=== PATIENT | male | born 1960 | race Caucasian/White ===

== ENCOUNTER → 2021-11-10 13:59 | Outpatient (CLI) | payer OTHER, SELFPAY ==
--- NOTE | ~2021-11-10 | XR_ITS ---
EXAMINATION: XR shoulder RT min 2V DATE: 11/10/2021 14:33 INDICATION: Right shoulder pain. TECHNIQUE: 4 views of right shoulder were obtained. COMPARISON: None. FINDINGS: Bone alignment is normal. No fracture. There is mild osteoarthritis of glenohumeral joint a nd severe osteoarthritis of acromioclavicular joint. There is narrowing of the subacromial space with remodeling of the undersurface of the acromion, consistent with chronic rotator cuff tear with cuff arthropathy. Median sternotomy wires are noted. IMPRESSION: 1. Polyarticular osteoarthritis. 2. Chronic right rotator cuff tear with cuff arthropathy. Reviewed, dictated and finalized at location B. E INSURANCE SALES REPRESENTATIVE
--- NOTE | ~2021-11-10 | XR_ITS ---
EXAMINATION: XR_CERV2-3V_CR EXAM DATE: 11/10/2021 14:32 INDICATION: No known recent injury provided at this time. Pain of the cervical spine. TECHNIQUE: Cervical spine frontal, lateral, lateral swimmers, and open-mouth odontoid projections. There is no prior study for comparison. FINDINGS: Large bridging cervical endplate osteophytes. There is mild to moderate loss of the C5-6 d isc height. C6-7 disc space not well visualized. There is overall mild to moderate cervical arthropat hy. The odontoid process is intact. The lateral masses of C1 line up with C2. Prevertebral soft tiss ue and pre-dens space are within normal limits. The vertebral bodies are aligned in the AP dimension. Sternotomy wire. IMPRESSION: 1. Bulky anterior endplate osteophytes. 2. Mild to moderate cervical arthropathy. Reviewed, dictated and finalized at location A. CUTTER
== END ==
PROVIDERS: PCP Nurse Practitioner Family; Visit Provider Nurse Practitioner Family
DX: M54.2 Cervicalgia (principal); M19.011 Primary osteoarthritis, right shoulder
CPT/HCPCS: 72040; 73030

== ENCOUNTER 2021-12-29 13:45 | Outpatient (RCR) | payer OTHER, SELFPAY ==
--- NOTE | 2021-09-30 15:06 | PTOPEVAL ---
PHYSICAL THERAPY EVALUATION AND PLAN OF CARE Thank you for referring Jorden Santana to [facility].? The patient is scheduled to be seen for therapy? 2x/week for 4 weeks. Please review, sign, date and return this plan of care KAREN. I agree with and certify that the following plan of care is medically necessary. Referring Physician Date Attending Provider: Marielena Deng NP Evaluation Information Diagnosis bilateral LE pain, right shoulder pain, neck pain Onset chronic Subjective Information Is here with multiple Query Text:As Reported By Patient/ complaints, but wants to focus Family on left LE first. 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 States that he cannot feel the lower part of the left leg (states he can kick a wall and not feel it). States that the left causes him to have poor balance and is weak. Also reports that the right leg has pain. States that he tripped because of the left LE neuropathy and fell and overstretched the right quadriceps - states that this happened 5 year ago. Prior to this injury he was a walker and since then the right quadriceps gets very fatigued. Sometimes the knees and hips might hurt, but he generally does not have a lot of pain (other than the neuropathy) in either LE. Has 2 stairs to enter the home . Has complaints of neck pain and right shoulder pain, but there is enough going on with LE that we will start there and address Upper body at a later date. Pain Assessment Timing of Pain Assessment Timing of Pain Assessment Assessment Self Report Self Report Pain Level 0 Pain Score Pain Score 0: Self Report Lower Extremity Muscle Strength Testing Hip Strength Right Hip Flexion Strength 4 Good Hip Extension Strength 3- Fair - Hip Abduction Strength 3- Fair - Left Hip Flexion Strength
--- NOTE | 2021-10-07 09:40 | PCPTNOTE ---
Patient did not show up for scheduled appointment this date; Called patient to remind him about appointment unable to leave voicemail due to dial continuing to ring with no option to leave voicemail.
--- NOTE | 2021-10-28 10:08 | PCPTNOTE ---
Patient had to reschedule appt today due to having another appointment.
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
--- NOTE | 2021-11-13 11:14 | PCPTNOTE ---
Patient did not show up for scheduled appointment this date. Called pt due to his missed visit, states he has something he needs to do instead and will not make his visit.
--- NOTE | 2021-12-01 11:22 | PCPTNOTE ---
Addendum entered by Lexie Ruiz, SUPERINTENDENT [employer] 12/01/21 11:26: Patient did not show up for scheduled appointment this date. Called Pt, unable to leave voicemail. Pt's next appointment is , 12/03/21 @ 11:00a. Original Note: Patient did not show up for scheduled appointment this date. Called Pt, unable to leave voicemail. Pt's next appointment is Tuesday12/03/21 @ 11:00a.
--- NOTE | 2021-12-08 17:18 | PTOPEVAL ---
PHYSICAL THERAPY PROGRESS REPORT Thank you for referring Jorden Santana to [facility].? The patient is scheduled to be seen for therapy? 1x/week for 4 weeks. Please review, sign, date and return this plan of care KAREN. I agree with and certify that the following plan of care is medically necessary. Referring Physician Date Attending Provider: Marielena Deng NP Progress Diagnosis bilateral LE pain, right shoulder pain, neck pain Onset chronic Subjective Information Jorden is here again today for Query Text:As Reported By Patient/ re-assessment following a Family month of therapy on the right shoulder. He reports no changes in range of motion or pain. Continues to have significant limitation. States that the left shoulder is hurting some and he believes it to be due to over stressing the left from supporting/ assisting the right. States that he is stretching the neck a lot and feels like he is getting more range of motion. there continues to be a knot in the back of the neck that is really causing some pain. Continues to feel like he has a significant balance deficit and the right thigh still gives him pain and difficulty. He would like to return to work on these two areas for another month and then will plan to continue HEP on his own. Self Report Pain Assessment Spine, Cervical Reported Pain Level 3 Pain Description Aching,Tightness Lowest Pain Intensity 8 Right Shoulder(s) Reported Pain Level 4 Pain Description With Movement Pain Score Pain Score 3,4: Self Report Additional Pain Score Comments . Interventions Used Interventions Used By Clinicians Exercise Upper Extremity Range of Motion Scapular/ Shoulder Range of Motion Right Shoulder Flexion - Active 150 Shoulder Abduction - Active 140 Shoulder Medial Rotation - Active L3 Query Text:Reach Behind the Back Shoulder Lateral Rotation - Active 0 Scapular/Shoulder Range of Motion 12/08/21: no changes in ROM Comments
--- NOTE | 2021-12-30 09:42 | PCPTNOTE ---
This treatment is being continued on visit number [id number]. Please see documentation on both accounts to view progress. Completed interventions, outcomes, and problems have been marked as Inactive to facilitate the copying of the Care plan routine for recurring accounts.
== END 2021-12-29 23:59 | disposition home or self-care (01) ==
LOC: ANHPT 13:45
PROVIDERS: PCP Nurse Practitioner Family; Visit Provider Nurse Practitioner Family
DX: M79.604 Pain in right leg (principal); M79.605 Pain in left leg; M25.511 Pain in right shoulder; M15.9 Polyosteoarthritis, unspecified; M54.2 Cervicalgia; R26.89 Other abnormalities of gait and mobility
CPT/HCPCS: 97110; 97112; 97140; 97163

== ENCOUNTER 2022-03-10 12:30 | Outpatient (RCR) | payer OTHER, SELFPAY ==
--- NOTE | 2021-12-30 09:43 | PCPTNOTE ---
The treatment documented on this account is a continuation of the treatment documented on visit number [id number]. Please see documentation on both accounts to view progress. The Plan of Care has been transitioned and updated within the new V#. I have addressed and agree with the discipline specific Problems, Interventions, and Goals for the current certification period. Completed interventions, outcomes, and problems have been marked as Inactive to facilitate the copying of the Care plan routine for recurring accounts.
--- NOTE | 2022-01-05 16:16 | PTOPEVAL ---
PHYSICAL THERAPY PROGRESS REPORT Thank you for referring Jorden Santana to [facility].? The patient is scheduled to be seen for therapy? 1x/week for 5 weeks. Please review, sign, date and return this plan of care KAREN. I agree with and certify that the following plan of care is medically necessary. Referring Physician Date Attending Provider: Marielena Deng NP Diagnosis bilateral LE pain, right shoulder pain, neck pain Onset chronic Subjective Information States that he feels like the Query Text:As Reported By Patient/ thigh muscle is improving. Family Feels like the muscle is not as tight as it was. Feels like his balance is improving overall but continues to not feel very confident. Pain Score Pain Score 0: Self Report Additional Pain Score Comments . Lower Extremity Range of Motion General Lower Extremity Range of Motion Reason Not Measured WNL/Left,WNL/Right Lower Extremity Muscle Strength Testing Hip Strength Left Hip Flexion Strength 5 Normal Hip Extension Strength 4- Good - Hip Abduction Strength 4- Good - Right Hip Flexion Strength 4+ Good + Hip Extension Strength 3 Fair Hip Abduction Strength 3+ Fair + Knee Strength Left Knee Flexion Strength 5 Normal Knee Extension Strength 5 Normal Right Knee Flexion Strength 4+ Good + Knee Extension Strength 4+ Good + Muscle Length Testing Muscle Length Testing Left Hamstring Length -40 Query Text:(90 - 90 Position) Right Hamstring Length -60 Query Text:(90 - 90 Position) Right Prone Knee Flexor Muscle Length ( 95 degrees) Left Prone Knee Flexor Muscle Length ( 95 degrees) Balance Assessment Mustafa Balance Assessment Sitting to Standing Independent w/out Hands Unsupported Stance Ability Safely- 2 minutes Sitting Unsupported, Feet on Floor Safely- 2 minutes Standing to Sitting Safely, Minimal Hand Use Transfer Ability Safely, Minimal Hand Use Unsupported Stance- Eyes Closed Safely, 10 seconds Unsupported Stance- Feet Together Independent, 1 minute Reaching Forward while Standing 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
--- NOTE | 2022-02-09 12:00 | PTOPEVAL ---
PHYSICAL THERAPY PROGRESS REPORT Thank you for referring Jorden Santana to [facility].? The patient is scheduled to be seen for therapy? 1x/week for 4 weeks to address further endurance deficits and safety with stairs. Please review, sign, date and return this plan of care KAREN. I agree with and certify that the following plan of care is medically necessary. Referring Physician Date Attending Provider: Marielena Deng NP Diagnosis bilateral LE pain, right shoulder pain, neck pain Onset chronic Subjective Information Feels like he has made alot Query Text:As Reported By Patient/ of improvement in regards to Family his right leg pain and strenght. he is going down the stairs to his basement and he is working on squats at home. Pain Score Pain Score 0: Self Report Lower Extremity Muscle Strength Testing Hip Strength Left Hip Flexion Strength 5 Normal Hip Extension Strength 4- Good - Hip Abduction Strength 4- Good - Right Hip Flexion Strength 5 Normal Hip Extension Strength 3+ Fair + Hip Abduction Strength 3+ Fair + Knee Strength Left Knee Flexion Strength 5 Normal Knee Extension Strength 5 Normal Right Knee Flexion Strength 5 Normal Knee Extension Strength 5 Normal Muscle Length Testing Muscle Length Testing Left Hamstring Length -40 Query Text:(90 - 90 Position) Right Hamstring Length -45 Query Text:(90 - 90 Position) Right Prone Knee Flexor Muscle Length ( 120 degrees) Left Prone Knee Flexor Muscle Length ( 100 degrees) Balance Assessment 5 Time Sit to Stand Time in Seconds 15 5 Time Sit to Stand Comments without UE Query Text:Normative Data: If Greater 1month ago: 22seconds without Than 15 Seconds, 74% Increase Risk for UE Recurrent Falls 2month ago: 21.65 without UE 3month ago: 18.61 seconds with UE 4months ago: 21.98seconds with UE Total Distance Walked (feet) 350 2 Minute Walk Gait Speed Score (feet/ 2.91 second) 2 Minute Walk Test Comments on 02/09 we discussed a goal of being able to walk 1/4 of a mile to be able to walk into and out of a store and to be able to walk through a store (1/4 of a mild on our clinic track is 9laps) (did walk 2.5minutes on 02/09/
--- NOTE | 2022-03-10 13:08 | PTOPEVAL ---
PHYSICAL THERAPY DISCHARGE NOTE Thank you for referring Jorden Santana to [facility]. Please review, sign, date and return this plan of care KAREN. I agree with and certify that the following plan of care is medically necessary. Referring Physician Date Attending Provider: Marielena Deng NP Problem Diagnosis bilateral LE pain, right shoulder pain, neck pain Onset chronic Subjective Information States he fell down the stairs Query Text:As Reported By Patient/ yesterday - his foot slipped Family out from under him. Has a bruise on his right knee a bruise on the left back of the arm. Other than pain from the fall he has no pain. He really thinks the cupping on the quad is doing really well and he feels stronger and like he can walk further Lower Extremity Muscle Strength Testing Hip Strength Left Hip Flexion Strength 5 Normal Hip Extension Strength 4 Good Hip Abduction Strength 4 Good Right Hip Flexion Strength 5 Normal Hip Extension Strength 4 Good Hip Abduction Strength 4 Good Knee Strength Left Knee Flexion Strength 5 Normal Knee Extension Strength 5 Normal Right Knee Flexion Strength 5 Normal Knee Extension Strength 5 Normal Muscle Length Testing Muscle Length Testing Left Hamstring Length -40 Query Text:(90 - 90 Position) Right Hamstring Length -40 Query Text:(90 - 90 Position) Right Prone Knee Flexor Muscle Length ( 120 degrees) Left Prone Knee Flexor Muscle Length ( 120 degrees) Balance Assessment Lopez Balance Assessment: 51/56 points) Gait Assessment 2 Minute Walk Test Comments 03/10: 479 (3.19ft/second) Stair Climbing Assessment Stair Climbing Assessment Stair Climbing Assistive Devices None Weight Bearing Status - Left Full Weight Bearing Status - Right Full Maintains Weight Bearing Status Yes Number of Steps Climbed (Steps) 4 Number of Repetitions (Repetitions) 3 Technique Alternating Steps Stair Climbing Direction Both Up and Down Stair Climbing Ability Independent Stair Climbing Comments states that his stairs at home are steeper and narrower than here; he does have bilateral rails at home PT Clinical Summary Jorden continues to have some concerns about his endurance
== END 2022-03-11 09:11 | disposition home or self-care (01) ==
LOC: ANHPT 12:30
PROVIDERS: PCP Nurse Practitioner Family; Visit Provider Nurse Practitioner Family
DX: M79.604 Pain in right leg (principal); M79.605 Pain in left leg; M25.511 Pain in right shoulder; M15.9 Polyosteoarthritis, unspecified; M54.2 Cervicalgia; R26.89 Other abnormalities of gait and mobility
CPT/HCPCS: 97110; 97112; 97140; 97530

== ENCOUNTER → 2022-07-07 11:12 | Outpatient (CLI) | payer OTHER, SELFPAY ==
--- NOTE | ~2022-07-07 | XR_ITS ---
EXAM: XR heel RT min 2V DATE: 07/07/2022 11:31 HISTORY: M76.60 - Achilles tendinitis, unspecified leg . COMPARISON: None available. FINDINGS: Normal mineralization. No fracture or dislocation. No lytic or blastic lesion. Scattered d egenerative changes. Prominent os trigonum. Achilles and plantar enthesopathy. No erosion or perioste al change. Soft tissues within normal limits. IMPRESSION: Achilles tendon and plantar enthesopathy. . Reviewed, dictated and finalized at location K.
== END ==
PROVIDERS: PCP Nurse Practitioner Family; Visit Provider Nurse Practitioner Family
DX: M77.31 Calcaneal spur, right foot (principal); M76.61 Achilles tendinitis, right leg
CPT/HCPCS: 73650

== ENCOUNTER 2022-07-09 11:00 | Outpatient (RCR) | payer OTHER, SELFPAY ==
--- NOTE | 2022-06-21 12:01 | PTOPEVAL ---
Thank you for referring Jorden Santana to [facility].? He is scheduled to be seen for therapy? 2x/week for 3 weeks. Please review, sign, date and return this plan of care KAREN. I agree with and certify that the following plan of care is medically necessary. Referring Physician Date Attending Provider: Marielena Deng NP Past Medical History Source of Past Medical History Patient Neurological History Hx Other Neurological Disorders Yes: restless leg syndrome, neuropathy B LE's Cardiovascular History Hx Coronary Artery Bypass Graft Yes Hx Hypertension Yes: meds Respiratory History Hx Other Respiratory Disorders Yes: SOB with exertion Gastrointestinal History Hx Gastrointestinal Disorders No Significant History Genitourinary History Hx Genitourinary Disorders No Significant History Musculoskeletal History Hx Arthritis Yes: in all joints Hx Spinal Surgery Yes: 2 back surgeries; Hx Other Musculoskeletal Disorders Yes: R rotator cuff tear-non surgery; neck pain;L leg numb due to back issues Hematological History Hx Hematological Disorders No Significant History Endocrine History Hx Endocrine Disorders No Significant History HEENT History Hx Cataracts Yes: B cataract surgery Hx Macular Degeneration Yes: B eyes Psychosocial History Hx Depression Yes: meds helping Evaluation Information Problem Diagnosis dizziness Onset March 14, 2022 Prior Level of Function Activity Level (Last 3 Months) Occupation not working outside of home Activity of Daily Living Ability Independent Indoor/Home Mobility Independent Community Mobility Independent Stairs Ability Independent Functional Cognition (Planning, Shopping Independent , Taking Medications) Cooking Yes Cleaning Yes Laundry Yes Shopping Yes Driving Yes Comments Additional Prior Level of Function since dizzy, limit driving; Comments Pain Assessment Timing of Pain Assessment Timing of Pain Assessment Assessment Pain Scale Pain Scale Used Numeric (1 - 10) Self Report Pain Assessment Bilateral Spine, Cervical Reported Pain Level 4 Pain Radiation Left Shoulder,Right Shoulder Radicular Pain Location get headaches every 3-4 months , not often; Pain Frequency Chronic,Continuous Other Pain Description hearing my bones crackle; Lowest Pain Intensity 4 Greatest Pain Intensity 5 Pain Aggravating Factors Exercise/Activity Pain Sc
--- NOTE | 2022-07-02 11:33 | PCPTNOTE ---
Patient called & cancelled scheduled appointment this date due to having stomach issues.
--- NOTE | 2022-07-13 13:54 | PCPTNOTE ---
pt called and canceled today's reeval appt;
--- NOTE | 2022-07-27 15:06 | PCPTNOTE ---
pt did not show for today's reeval, called and left voicemail message for him;
--- NOTE | 2022-08-09 15:43 | PCPTNOTE ---
PHYSICAL THERAPY DISCHARGE 08-09-22 Attending Provider: Marielena Deng NP Patient:Jorden Santana Date of :1960 Jorden has not returned for any further treatments since 07/09/2022, therefore he will be discharged at this time. He has received 5 PT sessions, from June 21 to July 09, for the diagnosis of dizziness. He called and canceled 2 and did not show for 1 appointment. The goals were not addressed. Thank you for referring this patient to [facility].
== END 2022-08-10 11:47 | disposition home or self-care (01) ==
LOC: ANHPT 11:00
PROVIDERS: PCP Nurse Practitioner Family; Referring Provider Nurse Practitioner Family; Visit Provider Nurse Practitioner Family
DX: R42 Dizziness and giddiness (principal)
CPT/HCPCS: 97110; 97162; 97530; 99199

== ENCOUNTER 2023-02-12 12:37 | Outpatient (CLI) | payer MEDICARE, MEDICAID, SELFPAY ==
--- NOTE | ~2023-02-12 | CT_ITS ---
EXAMINATION: CT femur RT wo con DATE: 02/12/2023 15:21 INDICATION: Right femur pain and femoral bone lesion on prior radiographs TECHNIQUE: High resolution computed tomography (CT) of the right femur was performed without intraven ous contrast. Additional sagittal and coronal reconstructions were performed. Automated exposure cont rol and iterative reconstruction technique were employed. The dose-length product was 1167.78 mGy-cm. COMPARISON: Radiographs dated 01/27/2023 and right knee MRI dated 02/12/2023 FINDINGS: Bone alignment is normal. No fracture. Mild osteoarthritis at the right hip with posterior predominan t mild nonuniform joint space narrowing and moderate-sized marginal osteophytes about the acetabulum. Joint space at the right knee are normal on nonweightbearing imaging. No knee joint effusion. There are proximal and distal patellar enthesophytes. There is a 3 x 1 x 1 cm nonaggressive lytic lesion ec centrically positioned along the medial cortex of the distal femoral metadiaphyseal region with thin sclerotic margins, Central fat attenuation without evident soft tissue density component and with no endosteal scalloping or periosteal reaction. No other suspicious lytic or blastic bone lesions. There are surgical clips at the right groin and at the subcutaneous tissues at the medial aspect of the ri ght knee likely related to prior saphenous vein graft harvest. Soft tissues are otherwise unremarkabl e. IMPRESSION: 1. Nonaggressive appearing 3 x 1 x 1 cm lytic lesion at the medial aspect of the distal metadiaphysea l region of the right femur with thin peripheral sclerotic margins surrounding central homogeneous fa t attenuation which is almost certainly benign. Reviewed, dictated and finalized at location A. IMPRESSION: 1. Nonaggressive appearing 3 x 1 x 1 cm lytic lesion at the medial aspect of th e distal metadiaphyseal region of the right femur with thin peripheral scleroti c margins surrounding central homogeneous fat attenuation which is almost certa inly benign.
--- NOTE | ~2023-02-12 | MR_ITS ---
EXAMINATION: MR knee RT wo con DATE: 02/12/2023 13:45 INDICATION: Right knee pain TECHNIQUE: Magnetic resonance imaging (MRI) of the right knee was performed without intravenous contr ast. Sequences included coronal PD-weighted FSE, coronal PD-weighted FS FSE, sagittal T2-weighted FS E, sagittal PD-weighted FS FSE and axial PD weighted fat saturated FSE. COMPARISON: None. FINDINGS: Medial compartment: Medial meniscus is normal. Articular cartilage is normal. Lateral compartment: Lateral meniscus is normal. Articular cartilage is normal. Patellofemoral compartment: Articular cartilage is normal. Ligaments and tendons: Anterior and posterior cruciate ligaments are normal. The medial collateral ligament and fibular lexie ateral ligament complex are normal. Mild patellar tendinopathy without tear. Mild quadriceps tendinop athy with chronic partial tear of the superficial aspect of the distal tendon with retraction of the tear margin approximately 2.3 cm from moderate-sized enthesophyte at the patellar insertion. There is corresponding mild fatty atrophy and proximal retraction of the rectus femoris muscle belly on the i mmediately subsequent CT imaging of the right femur which has been dictated separately. The visualize d medial and lateral hamstring tendons as well as the iliotibial band are normal. Fluid: Physiologic amount of fluid in the joint space. No loose osteochondral bodies identified. Osseous/other: Normal marrow signal including within the visualized portion of a lytic appearing lesion identified o n prior radiographs and CT underlying the medial cortex at the distal femoral metadiaphyseal region. No fracture or pathologic marrow replacing process. IMPRESSION: 1. Mild patellar and distal quadriceps tendinopathy with likely chronic partial tear involving the toney perficial central component of the distal quadriceps tendon. There is approximately 2 cm retraction o f the tear margin and corresponding retraction and fatty atrophy of the rectus femoris muscle belly o n subsequent CT imaging. 2. Normal cartilage, menisci and stabilizing ligaments of the right knee. 3. Normal marrow signal within a partially visualized likely benign lytic lesion at the medial aspect of the distal femoral metadiaphyseal region. Appearance suggests either sequela of chronic bone infa rct or residual stigmata of a chronically involuted benign fibrous cortical defect or bone cyst. Reviewed, dictated and finalized at location A. IMPRESSION: 1. Mild patellar and distal quadriceps tendinopathy with likely chronic partial tear involving the superficial central component of the distal quadriceps tend on. There is approximately 2 cm retraction of the tear margin and corresponding retraction and fatty atrophy of the rectus femoris muscle belly on subsequent CT imaging. 2. Normal cartilage, menisci and stabilizing ligaments of the right knee. 3. Normal marrow signal within a partially visualized likely benign lytic lesio n at the medial aspect of the distal femoral metadiaphyseal region. Appearance suggests either sequela of chronic bone infarct or residual stigmata of a chron ically involuted benign fibrous cortical defect or bone cyst.
== END 2023-02-12 12:38 | disposition home or self-care (01) ==
PROVIDERS: PCP Nurse Practitioner Family; Visit Provider Nurse Practitioner Family
DX: M25.561 Pain in right knee (principal); M89.8X5 Other specified disorders of bone, thigh; M77.8 Other enthesopathies, not elsewhere classified
CPT/HCPCS: 73700; 73721

== ENCOUNTER 2023-03-25 08:28 | Outpatient (CLI) | payer MEDICARE, SELFPAY ==
--- NOTE | ~2023-03-25 | NM_ITS ---
EXAMINATION: NM neal stress w perfusion DATE: 03/25/2023 11:18 INDICATION: Atherosclerosis of coronary artery TECHNIQUE: Rest images were obtained following intravenous administration of 10.5 mCi Tc99m tetrofosm in (Myoview). The patient was infused intravenously with Lexiscan (Regadenoson). Then, 33 mCi Tc99m t etrofosmin (Myoview) was administered intravenously, and stress images were obtained initially in sup ine position with repeat post stress imaging obtained in prone position. Data was reconstructed into short axis and horizontal and vertical long axis SPECT images. Gated SPECT images were also obtained. COMPARISON: None. FINDINGS: Perfusion on rest imaging is within normal limits with no definitive fixed perfusion defect to suggest infarct. There is moderate-sized mild to moderate severity region of reversible decreased perfusion on stress imaging obtained both supine and prone position at the apex, apical inferior, mi d inferior, basilar inferior and mid inferolateral segments. There is normal left ventricular chambe r size, wall motion and ejection fraction. Left ventricular ejection fraction measures 52%. IMPRESSION: 1. Moderate-sized region of mild to moderate reversible ischemia involving the apex, inferior wall an d mid inferolateral segment. No nonreversible infarct. 2. Left ventricular ejection fraction measuring 52%. Reviewed, dictated and finalized at location A. IMPRESSION: 1. Moderate-sized region of mild to moderate reversible ischemia involving the apex, inferior wall and mid inferolateral segment. No nonreversible infarct. 2. Left ventricular ejection fraction measuring 52%.
--- NOTE | 2023-03-25 09:36 | EST_ITS ---
Patient Info Name: Jorden Santana Age: 62 years : 1960 Gender: Male Ht: 72 in Wt: 300 lbs BSA: 2.69 m2 HR: 62 bpm BP: 138 / 62 mmHg Heart Rhythm: Sinus Rhythm Exam Date: 03/25/2023 9:48 AM Exam Location: [facility] Stress Patient Status: Outpatient Admit Date: 03/25/2023 Staff Ordering Physician: Michael Renteria DO Attending Provider: Michael Renteria DO Exercise Technologist: Nancy Gaona RDCS Exercise Physician: Michael Renteria DO Exam Type: CA stress neal w NM Study Info A regadenoson stress test was performed. Summary 1. 1. Negative lexiscan stress test for ischemic ST changes by ECG criteria. 2. 2. Stable hemodynamics throughout the test. 3. 3. Nuclear scan to follow and will be reported separately. Please correlate with it. 4. 4. Patient informed of the above results. Protocol: Lexiscan Stress ECG Details Stage: REST Duration (min): 1 min : 34 sec HR (bpm): 62 SBP (mmHg): 138 DBP (mmHg): 62 Stage: REST Duration (min): 11 min : 2 sec HR (bpm): 59 SBP (mmHg): 138 DBP (mmHg): 62 Stage: STAGE 1 Duration (min): 0 min : 59 sec HR (bpm): 71 SBP (mmHg): 156 DBP (mmHg): 54 Stage: RECOVERY Duration (min): 1 min : 0 sec HR (bpm): 83 SBP (mmHg): 156 DBP (mmHg): 54 Stage: RECOVERY Duration (min): 2 min : 0 sec HR (bpm): 83 SBP (mmHg): 124 DBP (mmHg): 63 Stage: RECOVERY Duration (min): 3 min : 0 sec HR (bpm): 74 SBP (mmHg): 133 DBP (mmHg): 68 Stage: RECOVERY Duration (min): 4 min : 0 sec HR (bpm): 70 SBP (mmHg): 141 DBP (mmHg): 68 Stage: RECOVERY Duration (min): 5 min : 0 sec HR (bpm): 74 SBP (mmHg): 135 DBP (mmHg): 73 Stage: RECOVERY Duration (min): 5 min : 17 sec HR (bpm): 72 SBP (mmHg): 135 DBP (mmHg): 73 Rest HR: 59 bpm Peak HR: 84 bpm Rest Sys BP: 138 mmHg Peak Sys BP: 156 mmHg Max Pred HR: 156 bpm % Max Pred HR: 54 % Target HR: 133 bpm Max RPP: 13,104 bpm*mmHg Termination Reason: Completed protocol Cardiac Symptoms: Shortness of breath Total Time: 1 min : 0 sec Rest Bernabe BP: 62 mmHg Peak Bernabe BP: 54 mmHg Total Dose: 0.4 mg Resting ECG Sinus rhythm. Stress ECG No ST changes. Arrhythmias None. Report Signatures
== END 2023-03-25 08:29 | disposition home or self-care (01) ==
PROVIDERS: PCP Nurse Practitioner Family; Visit Provider Internal Medicine Cardiovascular Disease
DX: I25.810 Atherosclerosis of coronary artery bypass graft(s) without angina pectoris (principal)
CPT/HCPCS: 78452; 93017; A9502; J2785

== ENCOUNTER 2023-03-30 11:57 | Outpatient (CLI) | payer MEDICARE, SELFPAY ==
--- NOTE | ~2023-03-30 | US_ITS ---
EXAMINATION: US venous doppler LE RT DATE: 03/30/2023 12:29 INDICATION: Right lower limb localized edema. TECHNIQUE: Grayscale ultrasound images without and with compression and Doppler ultrasound images of the right lower extremity veins were obtained. COMPARISON: None. FINDINGS: The visualized portions of right common femoral vein, profunda (deep) femoral vein, femoral vein, pop liteal vein, peroneal veins, posterior tibial veins, and greater saphenous vein outflow are patent. IMPRESSION: 1. No deep venous thrombosis. Reviewed, dictated and finalized at location A.
== END 2023-03-30 11:58 | disposition home or self-care (01) ==
PROVIDERS: PCP Nurse Practitioner Family; Visit Provider Internal Medicine Cardiovascular Disease
DX: R60.0 Localized edema (principal)
CPT/HCPCS: 93971

== ENCOUNTER 2023-04-19 00:39 | Day surgery (SDC) | payer MEDICARE, MEDICAID, SELFPAY ==
[2023-04-18 14:36] VITALS: BMI 41.1
[2023-04-19] VITALS (9 sets, daily range): BP systolic 132–160; BP diastolic 76–88; PULSE 65–68; RESP 14–16; TEMP 36.2–36.6; O2SAT 92–97; BMI 38.8
[2023-04-19 10:38] LABS: Basophils Absolute Auto 0.1 K/mm3 (0.0-0.1); Basophils Percent Auto 0.5 % (0.2-1.2); Eosinophils Absolute Auto 0.2 K/mm3 (0-0.3); Eosinophils Percent Auto 2.3 % (0-4.4); Hemoglobin 14.3 g/dL (14.0-18.0); Immature Granulocyte Absolute 0.04 K/mm3 (0.00-0.031); Immature Granulocyte Percent A 0.4 % (0-0.5); Lymphocytes Absolute Auto 1.89 K/mm3 (0.9-3.2); Lymphocytes Percent Auto 18.9 % (18.3-44.2); Mean Corpuscular HGB Conc 32.5 g/dl (32-36); Mean Corpuscular Hemoglobin 29.5 pg (26-34); Mean Corpuscular Volume 90.7 fl (80-100); Mean Platelet Volume 11.6 fl (7.4-10.4); Monocytes Absolute Auto 0.9 K/mm3 (0.1-0.6); Monocytes Percent Auto 8.7 % (2.6-8.5); Neutrophils Absolute Auto 6.9 K/mm3 (1.3-6.7); Neutrophils Percent Auto 69.2 % (45.5-73.1); Platelet Count Result 225 k/mm3 (150-375); Red Blood Count 4.85 M/mm3 (4.6-6.20); Red Cell Distribution Width 13.6 % (11.5-14.5)
[2023-04-19 10:49] LABS: INR 0.9; Prothrombin Time 12.5 Seconds (11.1-14.7)
[2023-04-19 10:58] LABS: Anion Gap 6 mmol/L (8-16); Blood Urea Nitrogen 17 mg/dL (9-20); Calcium 8.9 mg/dL (8.4-10.2); Carbon Dioxide 29 mmol/L (22-30); Chloride 104 mmol/L (98-107); Estimated CRCL calculation 112 ml/min; Estimated Glomerular Filt Rate > 60; Glucose 122 mg/dL (65-110); Potassium 3.8 mmol/L (3.4-5.0); Sodium 139 mmol/L (137-145)
--- NOTE | 2023-04-19 11:00 | SUR.PREOP ---
DR. ATWOOD TO BEDSIDE TO SEE PT.
[2023-04-19] MEDS: SODIUM CHLORIDE 0.9% IV 500 ML 100 ML IV CONT (11:09)
--- NOTE | 2023-04-19 12:43 | WPDHPUPDATE1 ---
History and Physical Update Update Date/Time: 04/19/23 12:43 History and Physical has been reviewed, including an updated exam of the patient. There are NO changes in the patient's condition. Risks, benefits, and alternatives have been discussed and questions answered. Patient agrees to proceed with procedure.
--- NOTE | 2023-04-19 12:43 | WPDMODSED ---
Moderate Sedation Note-Pt Data Patient Data Diagnosis: Coronary artery disease s/p CABG Present Complaint: Coronary artery disease s/p CABG Procedure to be performed/Plan: Coronary angiography, bypass graft angiography, left heart cath +/- percutaneous coronary intervention Allergies Allergy/AdvReac Type Severity Reaction Status Date / Time No Known Allergies Allergy Verified 04/19/23 10:26 Home Medications Medication Instructions Recorded Confirmed Type aspirin 81 mg tablet,delayed 81 mg PO DAILY 09/01/21 04/19/23 History release (Adult Low Dose Aspirin) nitroglycerin 0.4 mg sublingual 0.4 mg sublingual Q5M PRN Chest 09/01/21 04/18/23 History tablet Pain naproxen 500 mg tablet 500 mg PO BID PRN pain #180 tabs 11/04/21 04/18/23 Rx alprazolam 0.5 mg tablet (Xanax) 0.5 mg PO QHS PRN anxiety #30 tabs 05/20/22 04/19/23 Rx amlodipine 5 mg tablet 5 mg PO DAILY #90 tabs 08/16/22 04/19/23 Rx losartan 100 1 tablet PO DAILY #90 tabs 08/16/22 04/19/23 Rx mg-hydrochlorothiazide 25 mg tablet metoprolol tartrate 100 mg tablet 100 mg PO Q12H #180 tabs 08/16/22 04/19/23 Rx duloxetine 60 mg capsule,delayed 60 mg PO DAILY #90 caps 02/07/23 04/19/23 Rx release meclizine 25 mg tablet See Rx Instructions PO TID PRN 02/07/23 04/19/23 Rx dizziness #90 tabs gabapentin 100 mg capsule 100 mg PO QHS #30 caps 03/07/23 04/19/23 Rx omeprazole 20 mg capsule,delayed 20 mg PO DAILY #90 caps 04/01/23 04/19/23 Rx release rosuvastatin 40 mg tablet See Rx Instructions .Route 04/06/23 04/19/23 Rx .COMPLEX #90 tabs fluticasone propionate 50 1 spray intranasal DAILY 04/19/23 04/19/23 History mcg/actuation nasal spray,suspension (Flonase Allergy Relief) Current Medications: Active Medications Sodium Chloride (Normal Saline Iv) 500 mls @ 100 mls/hr IV CONT .Q5H TARUN Last Admin: 04/19/23 11:09 Dose: 100 mls/hr Sedation/Anesthesia: No previous sedation/anesthesia problems (including family history). [facility] Past Medical History Medical History Achilles tendonitis Allergic rhinitis Allergies Anxiety Arthritis Balance problem Bilateral lower extremity pain BMI 39.0-39.9,adult BMI 40.0-44.9, adult Body mass index (BMI) of 40.1 to 44.9 in adult Bone lesion CAD (coronary artery disease) Cervical spine pain Cervicalgia Chronic headaches Depression DJD of left shoulder Elevated fasting glucose Encounter to establish care Fatigue GERD (gastroesophageal reflux disease) Heart attack Heart disease History of heart attack (2008) HTN (hypertension) Hyperlipidemia Left shoulder pain Macular degeneration Neuropathy of both feet Osteoarthritis involving multiple joints on both sides of body Pain in right femur Prediabetes Prostate cancer screening Quadriceps tendonitis Right knee DJD Right knee pain Right shoulder pain Right shoulder pain Right wrist pain Rotator cuff tear arthropathy of right shoulder Screening for colon cancer Urinary urgency Vertigo Wellness examination Surgical History Surgical History H/O heart surgery (~2008) H/O microdiscectomy (~1997) Family History Family History Father Hypertension Depression Heart disease Mother Hypertension Heart disease Depression Social History Social History Smoking status: Former smoker Tobacco type: cigarettes Additional smoking assessment comments: quit in 2008 Alcohol intake: never Substance use: current Substance use type: marijuana Other substance usage details: medical cannabis Last use: 04/17/23 Lack of Transportation: No Lack of Food: Sometimes True Current Housing: I Have Housing Concerned About Future Housing: No Difficulty Paying Gas/Electric Bills: No Difficulty Paying for Meds: No Currently
--- NOTE | 2023-04-19 12:44 | WPDCARDPROC ---
Cardiac Cath Procedure Note Date of procedure:: 04/19/23 Performing physician:: CATHETERIZATION LABORATORY REPORT Procedure Date: 04/19/2023 Small Animal Caretaker: Cynthia Kinney M.D., [facility]? Referring Physician: Dr. Michael Renteria Anesthesia: Versed and Fentanyl were ordered and given in my presence at 11:55, procedure ended at 12:29. Supervision of nurse monitored moderate sedation with Versed and Fentanyl was provided for 34 minutes. Total of Versed 2mg and Fentanyl 100mcg were administered by the Generating Plant Superintendent RN Char Galvez. Pre-op Diagnosis: Coronary artery disease s/p CABG Post-op Diagnosis: Unable to obtain arterial access for cardiac cath (see procedure details). Brief History and Clinical Indications: Patient is a 63-year-old male with a history of CAD s/p CABG in 2008 (LYNNE-LAD, left radial artery Y-graft to the Diagonal and OM, and SVG-RPDA), history of right femoral artery pseudoaneurysm repair in 2008, obesity, hypertension, diabetes who is referred for cardiac catheterization for anginal who has dyspnea on exertion. Underwent nuclear stress test for preoperative evaluation which showed moderate-sided region of mild-moderate reversible ischemia involving the apex, inferior wall, and mid inferolateral segment; no nonreversible infarct, LVEF 52%. Given the abnormality, patient referred for cardiac catheterization. All risks, benefits and alternatives to left heart catheterization with or without percutaneous coronary intervention was discussed at length with the patient. Risk of complications including but not limited to bleeding, infection, arrhythmia, stroke, worsening kidney function, blood loss, groin hematoma, limb loss, emergency coronary artery bypass grafting, and even were discussed with the patient and all questions were answered. The patient understood and wished to proceed. Time out called, patient name, date of , medical record number, allergies, procedure performed, identify Small Animal Caretaker, patient and staff member concurred with accurate data, procedure carried on. Description of Procedure: Informed consent signed and placed in the chart. Patient transferred to engineer geophysical laboratory room. Prepped and draped in usual sterile fashion. 2% lidocaine in left groin area. Micropuncture needle used to access the left common femoral artery under ultrasound guidance. Pulsatile flow noted in the needle, however, the micropuncture wire would not advance. Repositioned the needle, however, wire would still not advance. Needle removed and manual pressure applied to achieve hemostasis. We attempted to access the right groin. Micropuncture needle used to access the right common femoral artery under ultrasound guidance. Micropuncture wire advanced without difficulty under fluoro. Given the significant amount of scar tissue, the micropuncture dilator would not completely advance all the way (about 1/4 of the dilator was inserted). Angio taken, which showed what appeared to be the remnant of prior pseudoaneurysm. Given this was adjacent to our access point, we did not want to access this site to avoid vascular complications (as [facility] does not have Vascular Surgery services available). Dilator removed and manual pressure was applied for hemostasis. I attempted the left common femoral artery again with the micropuncture needle under ultrasound guidance, and again had flow in the needle, but wire would not advance. Given this, to avoid vascular complications, we aborted the procedure here. His left radial artery was harvested for bypass graft, so unable to use that site for access. Post Operative Condition: Stable No significant blood loss Disposition: Home Plan: The patient will be monitored in the recovery area. The above findings were discussed with the referring physician (Dr. Renteria). Recommend referral to [facility] for cardiac cath. Would not reattempt cardiac cath here at [facility] due to limited resourc
--- NOTE | 2023-04-19 16:05 | SUR.PHASEII ---
RETURN CALL RECEIVED FROM DR. BAUMAN'S OFFICE AFTER PT. ALREADY DISCHARGED HOME. UPDATED ON OUTCOME OF ATTEMPTED LHC TODAY. DR. BAUMAN'S OFFICE WILL REACH OUT TO PT. TO SET UP FOLLOW UP CARE.
== END 2023-04-19 15:45 | disposition home or self-care (01) ==
PROVIDERS: PCP Nurse Practitioner Family; Visit Provider Internal Medicine
PROC: 4A023N7 Measurement of Cardiac Sampling and Pressure, Left Heart, Percutaneous Approach (ICD-10-PCS; CPT 93452; principal; 2023-04-19 11:30)
DX: I25.10 Atherosclerotic heart disease of native coronary artery without angina pectoris (principal); R94.39 Abnormal result of other cardiovascular function study; R06.09 Other forms of dyspnea; I11.9 Hypertensive heart disease without heart failure; I25.2 Old myocardial infarction; F41.9 Anxiety disorder, unspecified; F32.A Depression, unspecified; K21.9 Gastro-esophageal reflux disease without esophagitis; E78.5 Hyperlipidemia, unspecified; E11.42 Type 2 diabetes mellitus with diabetic polyneuropathy; E66.9 Obesity, unspecified; Z68.38 Body mass index [BMI] 38.0-38.9, adult; Z95.1 Presence of aortocoronary bypass graft; Z79.82 Long term (current) use of aspirin; Z87.891 Personal history of nicotine dependence; F12.90 Cannabis use, unspecified, uncomplicated
CPT/HCPCS: 36415; 80048; 85025; 85610; 93458; C1894; J1644; J2250; J3010; J7040

== ENCOUNTER 2023-04-25 13:15 | Outpatient (RCR) | payer MEDICARE, MEDICAID, SELFPAY ==
--- NOTE | 2023-03-04 14:43 | PTOPEVAL1 ---
Assessment and note entered by Mildred Mark, PT Evaluation Information Assessment Status Evaluation Diagnosis R knee OA; disorder of thigh Onset one month ago Subjective Information troubles in R leg for past 6 years- fell forward with knee bent and ripped quad, never had anything done for it ; had CT and MRI of R leg- pain in R thigh- feels like rubber band, with problems walking; 1 fall in the past 2 months, bent down and R leg gave out, fell onto floor at grocery store; have no quality of life, cannot do anything-- problems walking, no strength of shoulders due to problems in shoulders; want to be able to squat and get to the floor; had PT in the past here ~ 1-2 yr ago for this and it helped some, had cupping; does not do any leg or back exercises MRI of R knee: tendinopathy of distal quad, chronic partial tear of central-distal quad Reported Pain Level Pain Score Self Report Additional Pain Score Comments pain range in the past week 0-10/10; R anterior thigh/quad; leg unsteady; problems and pain start as soon as stand up; increase pain with standing, walking ~ 100', any activity; decrease pain with sitting/rest; is not taking any pain meds, not using heat/ice; Assessment PT Clinical Summary Jorden has the diagnosis of R leg pain, knee OA. He reports decreased walking, standing, ability to squat to the floor and home activity level. His medical history includes back pain, back surgery, R and L shoulder pain. He stated multiple times during session he does not have any quality to his life. He does not perform any fitness exercises or activities. And wants this knot on his thigh to break up and go away. With the evaluation, he has tightness over bilateral quad/anterior hip and hamstrings; decreased strength of both hips and knees and 2 minute walking test distance of 330' with reports of R hip pain. Skilled PT services are indicated for modalities to decrease pain and spasms over R quad and hip, therapeutic exercises to increase strength and flexibility of LE an
--- NOTE | 2023-03-22 11:41 | PCPTNOTE ---
Cancelled scheduled appointment this date due to Pt arriving 15 minutes late. Informed Pt per our policy and his tardiness we would be unable to see him. Pt understood. Pt has chronically showed up late to appointments, stressed to Pt to be on time for 's appointment @ 13:15.
--- NOTE | 2023-04-01 14:21 | PTOPPROG ---
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 Compared to the initial evaluation: pain rating at the worst has decreased from 10 to 6/10 over R quad; with the functional strength testing, was about the same with all except standing single leg standing and B PF have improved and he is able to pick something up off the floor with 1 UE support; 2 minute walking test distance is 20' less; with palpation, the spasm has decreased over R quad and he reports less tenderness; with flexibility- hamstring length is the same and prone knee flexion is 5' less. He has been educated on a home exercise program. Jorden has been to the rag cutting machine operator and is self limiting his activity and walking due to being told to not do anything until have the cardiac cath. The goals were partially met. Continue PT 1x/wk for 5 weeks, to further decrease pain and increase strength of R LE. With progression of HEP. Plan of Care Interventions Hot Pack/Cold Pack,Manual Therapy,Neuro Re- education,Patient Education,Therapeutic Activities,Therapeutic Exercise,Ultrasound,Other Other Interventions IASTM, taping PT Services Indicated Yes Treatment Frequency and 1x/wk for 5 weeks Duration These treatments will address the objective and functional deficits as defined above. The patient will be advanced safely and appropriately in order for the patient to progress towards his/her prior level of function. Additional exercises will be introduced and as well as a comprehensive home exercise program upon discharge, if needed, ?to ensure carryover of functional gains achieved in the clinic. This treatment plan has been reviewed and agreement upon by the patient.
--- NOTE | 2023-05-02 16:02 | PCPTNOTE ---
Pt. canceled today (05/02/23) as he had things to get done before the holiday tomorrow.
--- NOTE | 2023-05-05 14:15 | PCPTNOTE ---
pt did not show for today's reevaluation appt; called and left voicemail message.
--- NOTE | 2023-05-13 11:58 | PTOPDC ---
Assessment and note entered by Mildred Mark, PT Evaluation Information Assessment Status Discharge - Pt Not Presen Diagnosis R knee OA; disorder of thigh Onset one month ago Assessment PT Clinical Summary Jorden has received 10 PT treatment sessions, called and canceled 2 and did not show for 1 appointment. He did not show for his reevaluation appointment; he was called and did not return the call or reschedule the appointment, therefore he will be discharged at this time. The goals were not addressed. Plan of Care PT Services Indicated No
== END 2023-05-13 12:37 | disposition home or self-care (01) ==
LOC: ANHPT 13:15
PROVIDERS: PCP Nurse Practitioner Family; Visit Provider Nurse Practitioner Family
DX: M76.899 Other specified enthesopathies of unspecified lower limb, excluding foot (principal); M17.11 Unilateral primary osteoarthritis, right knee; M89.8X5 Other specified disorders of bone, thigh
CPT/HCPCS: 97110; 97112; 97140; 97161; 97530; 99199

== ENCOUNTER 2024-04-19 09:35 | Outpatient (CLI) | payer MEDICARE, MEDICAID, SELFPAY ==
--- NOTE | 2024-04-19 09:38 | ECHO_ITS ---
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 Summary 1. Complete two-dimensional, color flow and Doppler transthoracic echocardiogram is performed. 2. Left ventricular chamber dimension is normal. 3. Left ventricular systolic function is normal, estimated at 60-65%. 4. The left ventricular diastolic function is grade I diastolic dysfunction. 5. E/e' 9 is minimally elevated. 6. Right ventricular systolic function is mildly reduced and with abnormal TAPSE 1.6 cm. 7. Left atrial chamber dimension is mildly enlarged. 8. There is trace tricuspid valve regurgitation. 9. No pulmonary hypertension, estimated pulmonary arterial systolic pressure is 30 mmHg. Left Ventricle E/e' 9 is minimally elevated. Left ventricular chamber dimension is normal. Left ventricular systolic function is normal, estimated at 60-65%. The left ventricular diastolic function is grade I diastolic dysfunction. Right Ventricle Right ventricular systolic function is mildly reduced and with abnormal TAPSE 1.6 cm. Right ventricular chamber dimension is normal. Left Atria Left atrial chamber dimension is mildly enlarged. Right Atria Right atrial chamber dimension is normal. Aortic Valve The aortic valve is trileaflet. There is no aortic valve stenosis. There is no aortic valve regurgitation. Pulmonic Valve There is no pulmonic regurgitation. Mitral Valve There is no mitral valve stenosis. There is no mitral valve regurgitation. Tricuspid Valve There is trace tricuspid valve regurgitation. No pulmonary hypertension, estimated pulmonary arterial systolic pressure is 30 mmHg. Pericardium/Pleural There is no pericardial effusion. Inferior Vena Cava Normal inferior vena cava with >50% collapse upon inspiration consistent with normal right atrial pressure, 5 mmHg. Aorta The aortic root size at the sinus of Valsalva is normal. Left Ventricular Outflow Tract Name Value Normal LVOT 2D LVOT Diameter 2.1 cm LVOT Doppler LVOT Peak Gradient 5 mmHg LVOT Mean Gradient 2 mmHg LVOT VTI 27 cm LVOT VTI/AV VTI Ratio 0.8 LVOT Stroke Volume 90 ml LVOT CO 5.3 l/min LVOT CI 2.0 l/min/m2 Pulmonic Valve Name Value Normal PV Doppler
== END 2024-04-19 09:36 | disposition home or self-care (01) ==
LOC: ANHCARD 09:36
PROVIDERS: PCP Nurse Practitioner Family; Visit Provider Internal Medicine Cardiovascular Disease
DX: I25.810 Atherosclerosis of coronary artery bypass graft(s) without angina pectoris (principal)
CPT/HCPCS: 93306